=== PATIENT | female | born 1965 | race Two or more races ===

== ENCOUNTER 2022-12-04 12:39 | Inpatient (IN) | payer OTHER ==
[~2022-12-04] VITALS: Ht 167.6 cm; Wt 49.9 kg
[2022-12-09] MEDS ORDERED: INTESTINEX680 M1 PO (13:07)
[2022-12-09] MEDS ORDERED: PEPCID AC20 MG PO (13:07)
[2022-12-09] MEDS ORDERED: LEVSIN/SL0.125 MG SL (13:07)
[2022-12-09] MEDS ORDERED: CIPRO500 MG PO (13:08)
[2022-12-09] MEDS ORDERED: METRONIDAZOLE500 MG PO (13:10)
== END 2022-12-09 16:48 | disposition home or self-care (01) | DRG 387 ==
LOC: ER 12:39 → SURH 12-05 15:49 → SURG 12-06 11:13
PROVIDERS: ADMIT Surgery; ATTEND Surgery
DX: K50.112 Crohn's disease of large intestine with intestinal obstruction (principal); K62.4 Stenosis of anus and rectum; Z20.822 Contact with and (suspected) exposure to COVID-19

== ENCOUNTER 2022-12-18 16:54 | Emergency (ER) | payer OTHER ==
[~2022-12-18] VITALS: Ht 167.6 cm; Wt 45.4 kg
[~2022-12-18 16:54] MED LIST: CIPRO500 MG PO; INTESTINEX680 M1 PO; LEVSIN/SL0.125 MG SL; METRONIDAZOLE500 MG PO; PEPCID AC20 MG PO
== END 2022-12-19 14:49 | disposition designated cancer center or children's hospital (05) ==
LOC: ER 16:54
DX: K56.699 Other intestinal obstruction unspecified as to partial versus complete obstruction (principal); R10.9 Unspecified abdominal pain; K50.918 Crohn's disease, unspecified, with other complication; Z98.890 Other specified postprocedural states